=== PATIENT | male | born 1990 | race Caucasian/White ===

== ENCOUNTER 2017-02-28 11:26 | Emergency (ER) ==
[2017-02-28 11:36] VITALS: BP 144/94; TEMP 98.1; BMI 31.0
--- NOTE | 2017-02-28 12:01 | ED.PDOC ---
General ED Provider: Dr. GEOVANNY NAVARRO-ER Chief Complaint: Hand Pain/Injury Stated Complaint: i punched something --my hand hurts Time Seen by Physician: 11:30 Mode of Arrival: Walk-In Information Source: Patient Exam Limitations: No limitations Nursing and Triage Documentation Reviewed and Agree: Yes Musculoskeletal Complaint Exam - Hand/Wrist Complaint/Exam Location of Pain: Reports: Right, Hand Mechanism of Injury: Reports: Trauma Onset/Duration: one hour Symptoms Are: Still present Onset of Pain: Reports: Immediate Initial Severity: Mild Current Severity: Moderate Location: Reports: Discrete (right hand) Character: Reports: Dull, Aching, Stiffness Alleviating: Reports: Elevation Aggravating: Reports: Movement Associated Signs and Symptoms: Reports: Swelling, Bruising. Denies: Redness, Fever, Weakness, Numbness, Tingling Dominant Hand: Right Hand/Wrist Findings: Present: Swelling, Ecchymosis Tenderness: Present: Metacarpal Compartment Syndrome Risk Factors: Present: Pain. Absent: Paralysis, Pallor, Pulselessness, Paresthesias Differential Diagnoses: Contusion, Closed Fracture Review of Systems - Review Of Systems Constitutional: Reports: No symptoms Eyes: Reports: No symptoms Ears, Nose, Mouth, Throat: Reports: No symptoms Respiratory: Reports: No symptoms Cardiac: Reports: No symptoms GI: Reports: No symptoms : Reports: No symptoms Musculoskeletal: Reports: Joint pain, Muscle pain Skin: Reports: No symptoms Neurological: Reports: No symptoms Endocrine: Reports: No symptoms Hematologic/Lymphatic: Reports: No symptoms All Other Systems: Reviewed and Negative Past Medical History - Past Medical History Previously Healthy: No Endocrine: Reports: Unknown Cardiovascular: Reports: Unknown Respiratory: Reports: Unknown Hematological: Reports: Unknown Gastrointestinal: Reports: Unknown Genitourinary: Reports: Unknown Neuro/Psych: Reports: Unknown Musculoskeletal: Reports: Unknown Cancer: Reports: Unknown - Surgical History General Surgical History: Reports: Unknown - Family History Family History: Reports: Unknown - Social History Smoking Status: Current some day smoker Hx Substance Use: No Alcohol Screening: Occasionally Lives: With family - Immunizations Tetanus Shot up to Date: Yes Physical Exam - Physical Exam Appearance: Well-appearing, No pain distress, Well-nourished Pain Distress: Mild Eyes: OSORIO, EOMI, Conjunctiva clear ENT: Ears normal, Nose normal, Oropharynx normal Neck: Supple Respiratory: Airway patent, Breath sounds clear, Breath sounds equal, Respirations nonlabored Cardiovascular: RRR, Pulses normal, No rub, No murmur GI/: Soft, Nontender, No masses, Bowel sounds normal, No Organomegaly Musculoskeletal: Limited ROM Skin: Warm, Dry, Normal color Neurological: Sensation intact Psychiatric: Affect appropriate, Mood appropriate Interpretation - Radiology Interpretation Radiology Interpretation By: Radiologist Radiology Results: Negative Critical Care Note - Critical Care Note Total Time (mins): 0 Course - Course Orders, Labs, Meds: Orders Category Date Time Status ED APPLY ICE AFFECTED AREA .ONCE EMERGENCY 02/28/17 11:30 Active HAND, RIGHT 3 VIEWS Stat RADS 02/28/17 11:30 Completed Vital Signs: Temp Pulse Resp BP Pulse Ox 02/28/17 11:26 98.1 F 104 H 20 144/94 H 95 Departure - Departure Time of Disposition: 12:51 Disposition: HOME SELF-CARE Discharge Problem: Injury of hand Instructions: Hand Sprain (ED) Condition: Good Pt referred to PMD for follow-up: Yes Additional Instructions: stay in immobilizer==ice for 25hrs---toradol 10mg qid prn pain#16--stay in splint--recheck in 72hrs if not improved--consider re-xray Allergies/Adverse Reactions: Allergies acetaminophen [From Tylenol-Codeine] Adverse Reaction (Verified 02/28/17 11:33) codeine [From Tylenol-Codeine] Adverse Reaction (Verified 02/28/17 11:34) Hives Home Medications: Ambulatory Orders 1 [No Reported Medications] 02/28/17 Disposition Discussed With: Patient
--- NOTE | 2017-02-28 12:49 | DI ---
EXAM: Right hand; PA, lateral, and oblique views HISTORY: Trauma COMPARSION: None. FINDINGS: There is no acute fracture or dislocation. Joint spaces and alignment are maintained. Soft tissues are unremarkable. Patient had difficulty straightening fingers which slightly limits exam. OPINION: No acute osseous abnormality of the hand.
== END 2017-02-28 13:10 | disposition home or self-care (01) ==
LOC: ED 11:26
DX: S63.91XA Sprain of unspecified part of right wrist and hand, initial encounter (principal); W22.8XXA Striking against or struck by other objects, initial encounter; F17.210 Nicotine dependence, cigarettes, uncomplicated
CPT/HCPCS: 99283